=== PATIENT | male | born 1995 ===

== ENCOUNTER → 2017-05-01 | Outpatient (REF) | LOC: WSOH 13:37 → WSPT 15:00 | DX: Z02.89 Encounter for other administrative examinations (principal) ==

== ENCOUNTER → 2017-05-03 | Outpatient (REF) | LOC: WSOH 16:08 | DX: Z02.89 Encounter for other administrative examinations (principal) ==

== ENCOUNTER → 2017-05-07 | Outpatient (REF) | LOC: WSOH 05-04 15:52 | DX: Z11.1 Encounter for screening for respiratory tuberculosis (principal) ==

== ENCOUNTER → 2017-05-09 | Outpatient (REF) | LOC: WSOH 16:15 | DX: Z02.89 Encounter for other administrative examinations (principal) ==